=== PATIENT | female | born 1975 | race African-American/Black ===

== ENCOUNTER 2020-01-22 14:36 | Emergency (ER) | payer OTHER ==
--- NOTE | 2020-01-22 14:48 | PDOC ---
Rapid Medical Evaluation Chief Complaint: Vaginal Bleeding Time Seen by Provider: 01/22/20 14:45 Medical Evaluation: 01/22/20 14:45 I have performed a brief in-person evaluation of this patient. The patient presents with a chief complaint of: vaginal bleeding starting yesterday and worsening today with blood clots saoking 6 pads. LMP 6/8. Denies dizziness, palpitations, CP, weakness, fever, chills Pertinent physical exam findings:A&O x 3 in NAD I have ordered the following: CBC, hcg,T&s The patient will proceed to the ED for further evaluation. Discharge Disposition - Diagnosis Vaginal bleeding - Discharge Dispostion Condition at time of disposition: Stable - Referrals - Patient Instructions - Post Discharge Activity
[2020-01-22 14:52] VITALS: BMI 30.4
--- NOTE | 2020-01-22 15:06 | PDOC ---
History of Present Illness - General Chief Complaint: Vaginal Bleeding Stated Complaint: BLEEDING/WEAKNESS Time Seen by Provider: 01/22/20 14:45 - History of Present Illness Initial Comments: 01/22/20 15:05 HPI: 44 y/o F with hx of fibroids, uterine polyps s/p polypectomy, hemorrhagic cyst, adenomyosis presenting with vaginal bleeding. She reports symptoms [id number] but getting heavier since yesterday, going through 10pads. She reports her cycles have always been regular, but over the past 2 months they have become irregular and has been bleeding between cycles. Bleeding was initially light and brown but now bright red with clots. She also reports her normal period cramps in her pelvis and rad to back. Her LMP 6/8 and is expecting her period soon. She denies OCPS, fever, chills, dysuria, vaginal discharge. She reports some LH but no CORTEZ PMHx: as noted above ROS: as noted SHx: Denies tobacco use; no alcohol use; no rec drugs Allergies: NKDA ROS: GENERAL/CONSTITUTIONAL: No fever or chills. No weakness. HEAD, EYES, EARS, NOSE AND THROAT: No change in vision. No ear pain or discharge. No sore throat. CARDIOVASCULAR: No chest pain or shortness of breath RESPIRATORY: No cough, wheezing, or hemoptysis. GASTROINTESTINAL: No nausea, vomiting, diarrhea or constipation. GENITOURINARY: No dysuria, frequency, or change in urination. MUSCULOSKELETAL: No joint or muscle swelling or pain. No neck or back pain. SKIN: No rash NEUROLOGIC: No headache, vertigo, loss of consciousness, or change in strength/sensation. ENDOCRINE: No increased thirst. No abnormal weight change HEMATOLOGIC/LYMPHATIC: No anemia, easy bleeding, or history of blood clots. ALLERGIC/IMMUNOLOGIC: No hives or skin allergy. PE: GENERAL: Awake, alert, and fully oriented, no acute distress HEAD: No signs of trauma, normocephalic, atraumatic EYES: EOMI, sclera anicteric, conjunctiva clear ENT: Auricles normal inspection, hearing grossly normal, nares patent, oropharynx clear without exudates. Moist mucosa NECK: Normal ROM, no lymphadenopathy LUNGS: No increased work of breathing, symmetrical chest rise, clear to auscultation bilaterally, no wheezes, crackles or rhonchi HEART: Regular rate, regular rhythm, normal S1 and S2, no murmur, peripheral pulses 2+ and equal bilaterally. ABDOMEN: Soft, nondistended, nontender. No guarding, no rebound. No masses. No CVAT : normal appearing external genitalia, vaginal canal with blood but no odor or discharge, cervix cannot be visualized due to habitus and anatomy MUSCULOSKELETAL: FROM NEUROLOGICAL: Cranial nerves II through XII grossly intact. Normal speech, normal gait, no focal sensorimotor deficits SKIN: Warm, Dry, normal turgor, no rashes or lesions noted Past History - Medical History Allergies/Adverse Reactions: Allergies Allergy/AdvReac Type Severity Reaction Status Date / Time No Known Allergies Allergy Verified 01/22/20 14:47 Home Medications: Ambulatory Orders Cephalexin [Keflex] 500 mg PO BID #14 capsule 01/22/20 Ferrous Sulfate [Feosol] 325 mg PO DAILY 01/22/20 - Psycho-Social/Smoking History Smoking History: Never smoked - Substance Abuse Hx (Audit-C & DAST Scrn) How often the patient has a drink containing alcohol: Never Score: In Men: 4 or > Positive; In Women: 3 or > Positive: 0 Screen Result (Pos requires Nsg. Audit-10AR): Negative In the last yr the pt used illegal drug/Rx for NonMed reason: No Score: Yes response is considered Positive: 0 Screen Result (Positive result requires Nsg. DAST-10): Negative *Physical Exam - Vital Signs Last Vital Signs Temp Pulse Resp BP Pulse Ox 98.3 F 91 H 18 121/78 100 01/22/20 14:50 01/22/20 14:50 01/22/20 14:50 01/22/20 14:50 01/22/20 14:50 ED Treatment Course - LABORATORY CBC & Chemistry Diagram: 01/22/20 15:36 Medical Decision Making - Medical Decision Making 01/22/20 18:32 44 y/o F with hx of fibroids, uterine polyps s/p polypectomy, hemorrhagic cyst, adenomyosis presenting with vaginal bleeding. VSS, AF. PE with blood in the vaginal vault. -ua, cbc, serum preg, -tylenol -TVUS 01/22/20 18:34 ua with signs of uti keflex given will send script referred to patient appointment coordinator for followup Discharge - Discharge Information Problems reviewed: Yes Clinical Impression/Diagnosis: Vaginal bleeding, UTI (urinary tract infection) Condition: Stable Disposition: HOME - Additional Discharge Information Prescriptions: Cephalexin [Keflex] 500 mg PO BID #14 capsule - Follow up/Referral - Patient Discharge Instructions Patient Printed Discharge Instructions: DI for Urinary Tract Infection (UTI), DI for Vaginal Bleeding Additional Instructions: Additional Instructions: Please return to the emergency department with any new or worsening symptoms or concerns including worsening lightheadedness, fainting, fevers, worsening pain. Please follow up with your [employer] for further evaluation Please take Keflex 500mg twice a day for 7 days - Post Discharge Activity
[2020-01-22] MEDS ORDERED: ACETAMINOPHEN 500 MG TABLET (FP) PO ONE (15:27)
[2020-01-22] MEDS ORDERED: SODIUM CHLORIDE 1,000 ML IV STA (15:27)
[2020-01-22] MEDS ORDERED: ACETAMINOPHEN 325 MG TABLET (FP) ONE (15:35)
--- NOTE | 2020-01-22 15:39 | PDOC ---
Attending Attestation - Resident Resident Name: Yadiel Stubbs - ED Attending Attestation I have performed the following: I have examined & evaluated the patient, The case was reviewed & discussed with the resident, I agree w/resident's findings & plan - HPI HPI: 01/22/20 16:16 44 y/o AAF with hx of fibroids, uterine polyps s/p polypectomy, hemorrhagic cyst, adenomyosis presenting with vaginal bleeding. She reports symptoms [id number] but getting heavier since yesterday, going through 10pads. She reports her cycles have always been regular, but over the past 2 months they have become irregular and has been bleeding between cycles. Bleeding was initially light and brown but now bright red with clots. She also reports her normal period cramps in her pelvis LMP 12/26/09 for the past 1-2 months she has been having heavier, irregular sexually active, no trauma. no pain with intercourse 01/24/20 08:12 - Physicial Exam PE: 01/22/20 15:39 Agree with the resident's HPI and PE as documented in the electronic medical record. NAD, well appearing, EOMI, PERRL, nl conjunctiva, anicteric; neck supple. lungs clear, RRR, abdomen soft obese, +suprapubic TTP, no rebound, guarding. no CVAT. Back nontender. LU x4, no focal neuro deficits. No peripheral edema. normal color for ethnicity, WWP. exam: normal external genitalia, unable to visualize cervix due to pt cooperation. +copious blood and dark clots in vaginal vault. chaperoning resident, see note for documentation. 01/22/20 16:15 01/22/20 16:18 - Medical Decision Making 01/22/20 15:38 Vital Signs Temp Pulse Resp BP Pulse Ox 98.3 F 91 H 18 121/78 100 01/22/20 14:50 01/22/20 14:50 01/22/20 14:50 01/22/20 14:50 01/22/20 14:50 DDx female abdominal pain/VB: ovarian cyst, ovarian torsion, TOA, appy, UTI, pyelonephritis, STD/PID, Mittelschmerz, anemia, electrolyte/metabolic derangements, DUB, fibroid txs cbc, coags wnl hcg neg UA with prelim +nitrites, wbcs, blood and leuk esterase, correlate with UTI as well, Keflex course x 1 week, f/u cultures VS wnl, normotensive, no tachy or hypoxia/respiratory distress. abdomen benign on reeval and no peritoneal findings, no VB here, controlled TVUS with fibroid uterus, multiple leiomyomas, otherwise unremarkable, no cyst. normal ov flows. 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 01/24/20 08:12 01/24/20 08:13 Discharge - Discharge Information Problems reviewed: Yes Clinical Impression/Diagnosis: Vaginal bleeding, UTI (urinary tract infection) Condition: Stable Disposition: HOME - Additional Discharge Information Prescriptions: Cephalexin [Keflex] 500 mg PO BID #14 capsule - Follow up/Referral - Patient Discharge Instructions Patient Printed Discharge Instructions: DI for Urinary Tract Infection (UTI), DI for Vaginal Bleeding Additional Instructions: Additional Instructions: Please return to the emergency department with any new or worsening symptoms or concerns including worsening lightheadedness, fainting, fevers, worsening pain. Please follow up with your [employer] Deputy for further evaluation Please take Keflex 500mg twice a day for 7 days - Post Discharge Activity
[2020-01-22 15:54] LABS: EOS % 1.9 % (0-4.5); HEMATOCRIT 37.8 % (32.4-45.2); HEMOGLOBIN 11.8 GM/dL (10.7-15.3); LYMPH % 25.9 % (8-40); MCH 26.4 pg (25.7-33.7); MCHC 31.2 g/dl (32.0-36.0); MEAN CELL VOLUME 84.6 fl (80-96); MONO % 5.9 % (3.8-10.2); NEUT % 65.3 % (42.8-82.8); PLATELET COUNT 164 K/MM3 (134-434); RBC 4.48 M/mm3 (3.60-5.2); RDW 14.7 % (11.6-15.6); WHITE BLOOD COUNT 7.3 K/mm3 (4.0-10.0)
[2020-01-22 15:59] LABS: PROTHROMBIN TIME (PATIENT) 11.8 SEC (9.7-13.0)
[2020-01-22 16:02] LABS: ACTIVATED PTT 30.3 SECONDS (25.2-36.5)
[2020-01-22 16:21] LABS: EPI CELLS 7 /uL (0-25.1); HYALINE CASTS 26 /uL (0-3.1); URINE APPEARANCE TURBID; URINE BILIRUBIN 2+ (NEGATIVE); URINE COLOR RED; URINE GLUCOSE (UA) NEGATIVE (NEGATIVE); URINE KETONE NEGATIVE (NEGATIVE); URINE LEUK ESTERASE 3+ (NEGATIVE); URINE NITRITE POSITIVE (NEGATIVE); URINE PROTEIN 2+ (NEGATIVE); URINE RBC 5170 /uL (0-23.9); URINE UROBILINOGEN 0.2 mg/dL (0.2-1.0); URINE WBC 11 /uL (0-25.8)
[2020-01-22] MEDS ORDERED: CEPHALEXIN MONOHYDRATE 500 MG CAPSULE (UD) PO ONE (17:04)
[2020-01-22 18:49] VITALS: BP 120/67; PULSE 76; TEMP 97.8
== END 2020-01-22 18:49 | disposition home or self-care (01) ==
LOC: EDSEX → JER 14:36
DX: N93.9 Abnormal uterine and vaginal bleeding, unspecified (principal); N39.0 Urinary tract infection, site not specified
CPT/HCPCS: 36415; 76830-TC; 81003; 84703; 85025; 85610; 85730; 86850; 86900; 86901; 87086; 99284-25